=== PATIENT | female | born 1975 | race Caucasian/White ===

== ENCOUNTER 2016-05-20 11:36 | Emergency (ER) | payer OTHER ==
[~2016-05-20 11:36] MED LIST: AUGMENTIN PO; LORTAB 5/500 TA1 TA1; LORTAB 5/500 TA1 TA1 PO; NEURONTIN PO; PREDNISONE PO; TENORMIN50 MG PO; ZOVIRAX800 MG PO; ZYRTEC PO
== END 2016-05-20 12:20 | disposition home or self-care (01) ==
LOC: CED 11:36
DX: H60.92 Unspecified otitis externa, left ear (principal); I10 Essential (primary) hypertension; K21.9 Gastro-esophageal reflux disease without esophagitis; F41.9 Anxiety disorder, unspecified; F17.210 Nicotine dependence, cigarettes, uncomplicated
CPT/HCPCS: 87651; 99282